=== PATIENT | male | born 1955 | race Caucasian/White ===

== ENCOUNTER 2018-02-16 07:51 | Day surgery (SDC) | payer BC, OTHER, SELFPAY ==
[2018-02-16] VITALS (9 sets, daily range): BP systolic 109–161; BP diastolic 72–104; PULSE 55–117; RESP 14–24; TEMP 35.9–36.4; O2SAT 92–98
--- NOTE | 2018-02-16 | PATH_ITS ---
[facility] Accession Number: [id number] . 01 Material submitted: . RANDOM COLON . 02 Diagnosis: Random, Colon, Biopsies: Colonic mucosa with no diagnostic abnormality. Negative for active or microscopic colitis. Negative for granulomata, dysplasia or malignancy. [facility]/02/19/2018 . 02 Electronically signed: . Ricco Patiño MD, PhD, Pathologist NPI- [id number] . 01 Gross description: . Received in one formalin-filled container, labeled with the patient's name, labeled random colon, are multiple 0.1-0.3 cm portions of tissue, which are filtered, wrapped, and entirely submitted in one cassette. (DC:[id number]) /FRR . 02 Pathologist provided ICD-10: R19.7 . 02 CPT . 390645 Performed at: 01 [facility] [address] [id number] MD aRheem Eric MD Phone: [phone] Performed at: 02 [facility] [address] [place], [place] [id number] MD Jarrett Paige MD Phone: [phone]
--- NOTE | 2018-02-16 08:43 | SUR.PREOP ---
magda draper;ier entries were entered on wrong patient..
[2018-02-16] MEDS: SODIUM CHLORIDE 0.9% 1,000 ML 200 ML IV (08:44)
--- NOTE | 2018-02-16 08:51 | PM.HP.1 ---
History of Present Illness Date Patient Seen: 02/16/18 Time Patient Seen: 08:49 Chief complaint: [id number] Narrative: The patient is a gentleman who had a colonoscopy 7 years ago. He is overdue by 2 years. He has a personal history of polyps. Last exam was 2010. No blood in his stool and no family history of colon cancer. Patient History Medical History History of colonic polyps (Acute) Hypercholesterolemia (Acute) Hypertension (Acute) Encounter for colonoscopy due to history of adenomatous colonic polyps (Acute) Family & Social History Family History: Reviewed 02/16/18 by Richmond Holguin MD Social History: household members spouse Tobacco & Substance use: Does not smoke Meds Home Medications Medication Instructions Recorded Confirmed Type Triglide 160 mg PO DAILY 02/16/18 02/16/18 History aspirin 81 mg PO DAILY 02/16/18 02/16/18 History losartan-hydrochlorothiazide 100 mg PO BID 02/16/18 02/16/18 History metoprolol succinate 100 mg PO BID 02/16/18 02/16/18 History simvastatin 40 mg PO DAILY 02/16/18 02/16/18 History Allergies Allergy/AdvReac Type Severity Reaction Status Date / Time No Known Drug Allergies Allergy Verified 02/16/18 07:19 Review of Systems Review of Systems All systems reviewed & are unremarkable except as noted in HPI and below Cardiovascular Comments: Hypertension. History of a murmur as a child. Exam Vital Signs (past 8 hours): Vital Signs - 8 hr 02/16/18 07:27 02/16/18 08:25 Temperature 97.6 F 96.6 F L Pulse Rate 85 55 L Respiratory Rate 16 16 Blood Pressure 109/76 140/80 H Pulse Oximetry 98 97 Pulse Oximetry 97 Oxygen Delivery Method Room Air Narrative Exam Narrative: Co Operative no apparent distress. Eyes nonicteric. Lungs are clear to auscultation no rales or rhonchi. Heart regular rate and rhythm no murmur gallop. Abdomen is mildly protuberant soft nontender without mass. Patient is alert and oriented x3. Assessment & Plan Plan: Assessment/Plan Narrative: I have discussed the procedure and the rationale with the patient including risks of bleeding, perforation which would necessitate a major operation, failure to find remove all lesions and the potential to tattoo. They appeared to understand and wished to proceed.
--- NOTE | 2018-02-16 08:56 | P.HP_ITS ---
History of Present Illness Date Patient Seen: 02/16/18 Time Patient Seen: 08:49 Chief complaint: [id number] Narrative: The patient is a gentleman who had a colonoscopy 7 years ago. He is overdue by 2 years. He has a personal history of polyps. Last exam was 2010. No blood in his stool and no family history of colon cancer. Patient History Medical History History of colonic polyps (Acute) Hypercholesterolemia (Acute) Hypertension (Acute) Encounter for colonoscopy due to history of adenomatous colonic polyps (Acute) Family & Social History Family History: Reviewed 02/16/18 by Richmond Holguin MD Social History: household members spouse Tobacco & Substance use: Does not smoke Meds Home Medications Medication Instructions Recorded Confirmed Type Triglide 160 mg PO DAILY 02/16/18 02/16/18 History aspirin 81 mg PO DAILY 02/16/18 02/16/18 History losartan-hydrochlorothiazide 100 mg PO BID 02/16/18 02/16/18 History metoprolol succinate 100 mg PO BID 02/16/18 02/16/18 History simvastatin 40 mg PO DAILY 02/16/18 02/16/18 History Allergies Allergy/AdvReac Type Severity Reaction Status Date / Time No Known Drug Allergies Allergy Verified 02/16/18 07:19 Review of Systems Review of Systems All systems reviewed & are unremarkable except as noted in HPI and below Cardiovascular Comments: Hypertension. History of a murmur as a child. Exam Vital Signs (past 8 hours): Vital Signs - 8 hr 3 02/16/18 07:27 02/16/18 08:25 Temperature 97.6 F 96.6 F L Pulse Rate 85 55 L Respiratory Rate 16 16 Blood Pressure 109/76 140/80 H Pulse Oximetry 98 97 Pulse Oximetry 97 Oxygen Delivery Method Room Air Narrative Exam Narrative: Co Operative no apparent distress. Eyes nonicteric. Lungs are clear to auscultation no rales or rhonchi. Heart regular rate and rhythm no murmur gallop. Abdomen is mildly protuberant soft nontender without mass. Patient is alert and oriented x3. Assessment & Plan Plan: Assessment/Plan Narrative: I have discussed the procedure and the rationale with the patient including risks of bleeding, perforation which would necessitate a major operation, failure to find remove all lesions and the potential to tattoo. They appeared to understand and wished to proceed.
--- NOTE | 2018-02-16 08:56 | PM.PREOP ---
Pre-operative Note Interval Note Pre-op Check: History & Physical exam performed today H&P completed within 30 days and has changed as indicated here:: None ASA Class (for procedural sedation): II
[2018-02-16] MEDS: fentaNYL 250 MCG/5 ML INJ IV (09:23)
[2018-02-16] MEDS: MIDAZOLAM 5 MG/5 ML VIAL IV (09:25)
--- NOTE | 2018-02-16 09:27 | PM.OP.ENDO ---
Operative Date/Time/Diagnoses - Date of procedure: 02/16/18 Time of procedure: 09:27 Pre-op diagnosis: History of colonic polyps. Screening examination. Last exam 7 years ago. Post-op diagnosis: same (Sigmoid diverticulosis. Unusual granular pattern to the proximal 2/3 of the colon. Random biopsies taken.) Procedure & Clinicians Study performed: Colonoscopy with cold biopsy Same procedure as scheduled: Yes Indications: Screening. History of polyps. Surgeon: Richmond Holguin Procedure Notes SCOAP/Timeout: Performed Procedure in detail: The patient was placed in the left lateral decubitus position and underwent IV sedation directed by the surgeon consisting of fentanyl and Versed. Digital exam was unremarkable. His prostate is flat and normal in size without masses.. The scope was inserted and advanced through the rectum into the sigmoid, descending, transverse, and ascending colon. The patient had a very unusual mucosal pattern. It was almost granular. The distal portion of the colon was spared. The patient was noted to have numerous sigmoid diverticulosis. There was no evidence of stricture or inflammation.. The cecum was reached identified by the ileocecal valve and the appendiceal opening. The ileocecal valve was successfully cannulated. The terminal ileum was normal in appearance. The scope was gradually brought out. Random biopsies were taken as I egressed. No Polyps were found. The scope ultimately was retroflexed in the rectum. The appearance was[normal in appearance]. The scope was removed and the patient tolerated the procedure well Scope withdrawal time: 12 min Sedation minutes: 25 Findings: diverticulosis Specimen(s): other (Random colon) Complications: none Recommendations: Colonscopy in 5 years (Due to history of colonic polyps) and Other recommendation (Will send letter) Follow up: as needed Disposition: PACU
[2018-02-16] MEDS: ONDANSETRON 4 MG/2 ML INJ IV ×2 (09:42→09:51)
[2018-02-16] MEDS: PROMETHAZINE 12.5 MG in SODIUM CHLORIDE 0.9% 50 ML 202 ML IV (09:49)
== END 2018-02-16 11:05 ==
LOC: ENDO 07:52
PROVIDERS: Visit Provider Specialist
PROC: 0DJD8ZZ Inspection of Lower Intestinal Tract, Via Natural or Artificial Opening Endoscopic (ICD-10-PCS; CPT 45378; principal; 2018-02-16 08:45)
DX: Z12.11 Encounter for screening for malignant neoplasm of colon (principal); Z86.010 Personal history of colon polyps; K57.30 Diverticulosis of large intestine without perforation or abscess without bleeding; I10 Essential (primary) hypertension
CPT/HCPCS: 45380; 99152; 99153; J2250; J2405; J2550; J3010

== ENCOUNTER → 2020-11-09 15:47 | Outpatient (CLI) | payer BC, SELFPAY ==
[2020-11-09 16:32] LABS: COVID19 -Nasal RAPID Negative (Negative)
== END ==
PROVIDERS: PCP Family Medicine; Visit Provider Physician Assistant
DX: Z20.822 Contact with and (suspected) exposure to COVID-19 (principal)
CPT/HCPCS: 87635

== ENCOUNTER → 2020-11-10 10:22 | Outpatient (CLI) | payer BC, OTHER, SELFPAY ==
--- NOTE | 2020-11-10 11:51 | PM.TREADMILL ---
Cardiac Stress Test Report Referral & Results Date Patient Seen: 11/10/20 Time Patient Seen: 11:52 Requesting provider: Sarah Molina Indication: Atherosclerotic heart disease Rest ECG: sinus rhythm with early repolarization Procedure Note: Standard Robert protocol, 9:31, 10.4 METS Good exercise capacity, SINDI -19% Normal hemodynamic response to exercise No chest pain or anginal symptoms No significant ST changes at peak exercise Rare PVC Impression: Normal exercise stress test Please note: Actual ECG tracings can be found in the PACS system.
--- NOTE | 2020-11-11 19:50 | DI.NM.S_ITS ---
DATE OF SERVICE: 11/10/2020 PROCEDURE: Exercise perfusion study. INDICATION: Coronary artery calcification, underlying diabetes mellitus, hypertension, hyperlipidemia. RADIOPHARMACEUTICAL: 27.2 millicurie technetium-99m Myoview IV was injected at stress and 26.7 millicurie technetium-99m Myoview IV was injected at rest. CARDIAC STRESS: The patient underwent exercise perfusion study under the supervision of attending staff. The patient walked on Robert protocol for 9 minutes and 31 seconds, achieved 96 percent of target heart rate and normal blood pressure response. The patient achieved 10.1 METs of workload and functional aerobic impairment -19 percent. Baseline EKG revealed sinus rhythm. During stress, no convincing ischemic changes. Rare PVCs. No anginal symptoms. The patient felt some dyspnea and fatigue. RAW DATA: There is adequate myocardial uptake. There is increased subdiaphragmatic activity. GATED STUDY: Stress and resting supine images revealed a small size, mildly decreased perfusion of inferior wall and inferoapex, which got completely resolved during prone images suggestive of diaphragmatic tissue attenuation artifact. No convincing ischemia or infarction pattern seen. The gated study showed resting LV ejection fraction is 70 percent and stress LV ejection fraction 71 percent. Resting end-diastolic volume 90 mL. TID ratio 0.90, which is within normal limits. Lung/heart ratio 0.54, which is abnormal. CONCLUSION: 1. I will call this study a normal myocardial perfusion study. Excellent exercise tolerance. Functional aerobic impairment -19 percent. Left ventricular function is preserved. 2. In view of abnormal lung/heart ratio, consider 2D echo to rule out any significant diastolic dysfunction or valvular pathology. Travis Young - SAMMIE/demond/madison doc#: [id number]/job#: [id number] dd: 11/11/2020 17:44:00 dt: 11/11/2020 19:33:00 DICTATING MD/COPIES TO: Ike Mcwilliams MD COPIES MNE: SHLOMO;
== END ==
PROVIDERS: PCP Family Medicine; Referring Provider Internal Medicine Cardiovascular Disease; Visit Provider Internal Medicine Cardiovascular Disease
DX: I25.10 Atherosclerotic heart disease of native coronary artery without angina pectoris (principal); E11.9 Type 2 diabetes mellitus without complications; I10 Essential (primary) hypertension; E78.5 Hyperlipidemia, unspecified
CPT/HCPCS: 78452; 93017; A9502

== ENCOUNTER → 2021-03-02 07:41 | Outpatient (CLI) | payer BC, MEDICARE, OTHER, SELFPAY ==
--- NOTE | 2021-03-02 07:53 | DI.ECHO.S_ITS ---
[facility]---------+ [facility] +---------+ : : [address] : : : : [id number] : : : : Phone: [phone]+ Echocardiogram Report + + :Name: GIOVANNY ROSS Study Date: 03/02/2021 Height: 71 in : :[facility] ReadingLocation: Weight: 190 lb : : Gender: Male BSA: 2.1 m2 : :: 1955 Age: 66 yrs BP: 134/83 mmHg: :Reason For Study: DYSPNEA : :Ordering Physician: SAGRARIO, : :FLO Performed By: Sheri Sanabria : :Referring: IFEOMA MOLINA : + + Interpretation Summary 1) Normal left ventricular thickness, size, wall motion, and systolic function (EF 55-60%). 2) Normal right ventricular size and function. 3) No significant valvular abnormalities. 4) Right ventricular systolic pressure is estimated to be 26 mmHg plus the clinically estimated CVP which cannot be estimated on this exam. 5) No prior Echo available for comparison. Procedure: A two-dimensional transthoracic echocardiogram with color flow and Doppler was performed. The study quality was technically adequate. There is no prior echocardiogram noted for this patient. The patient was in sinus bradycardia with heart rates between 50-61 bpm during the exam. Left Ventricle: The left ventricle is normal in size and wall thickness. The ejection fraction is estimated to be 55-60%. Left ventricular systolic function appears normal without focal wall motion abnormalities. Diastolic parameters suggest probable normal left ventricular diastolic function and normal filling pressures. Right Ventricle: The right ventricle is normal in size and function. Atria: Both atria are normal in size. There is no Doppler evidence for an interatrial shunt. Mitral Valve: The mitral valve is normal in structure and function. There is mild mitral regurgitation. Aortic Valve: The aortic valve is trileaflet. The aortic valve opens well. There is no aortic valve stenosis. There is trace aortic regurgitation. Tricuspid Valve: The tricuspid valve is normal in structure and function. There is mild tricuspid regurgitation. Right ventricular systolic pressure is estimated to be 26 mmHg plus the clinically estimated CVP which cannot be estimated on this exam. Pulmonic Valve: The pulmonic valve leaflets are thin and pliable; valve motion is normal. There is trace pulmonic regurgitation. Great Vessels: The aortic root is normal size. The ascending aorta is at the upper limits of normal in size. The inferior vena cava was not well visualized. Pericardium/ Pleura There is no pericardial effusion. There is no pleural effusion. MMode/2D Measurements & Calculations LVIDd: 4.9 cm LVOT diam: 2.2 cm LVIDs: 3.6 cm Ao root diam: 3.4 cm FS: 25.6 % asc Aorta Diam: 3.5 cm EPSS: 0.68 cm Ao Arch Diam (Prox Trans): 3.0 cm IVSd: 1.0 cm LVPWd: 0.79 cm LV wells. diameter/BSA (cm/m^2): 2.4 LV sys. diameter/BSA (cm/m^2): 1.8 LA A2 area: 18.9 cm2 RA long axis: 5.0 cm LA A4 area: 18.2 cm2 RA area: 16.2 cm2 LA length (vol): 5.3 cm RA vol: 44.9 ml LA vol: 54.5 ml RA : 21.8 ml/m2 LA vol index: 26.4 ml/m2 IVC diam: 1.3 cm RVD1 (basal): 3.3 cm TAPSE: 1.9 cm Doppler Measurements & Calculations Ao V2 max: 135.9 cm/sec LVOT Max Kavon: 86.8 cm/sec Ao V2 mean: 92.3 cm/sec LV V1 max P.0 mmHg Ao max P.4 mmHg LV V1 VTI: 19.9 cm Ao mean P.8 mmHg JONATHAN(I,D): 2.6 cm2 Ao V2 VTI: 27.7 cm JONATHAN(V,D): 2.3 cm2 sev ratio: 0.72 JONATHAN indexed to BSA (cm^2/m^2): 1.3 MV E max kavon: 64.7 cm/sec TR max kavon: 255.0 cm/sec MV A max kavon: 45.3 cm/sec TR max P.0 mmHg MV E/A: 1.4 PA V2 max: 107.3 cm/sec Med Peak E' Kavon: 9.1 cm/sec PA V2 mean: 71.9 cm/sec E/E' med: 7.1 PA mean P.3 mmHg Lat Peak E' Kavon: 10.1 cm/sec PA pr(Accel): 17.3 mmHg E/E' lat: 6.4 E/e' average: 6.7 MV dec time: 0.21 sec SVLVOT): 72.3 ml Reading Physician:01:31 PM
== END ==
PROVIDERS: PCP Family Medicine; Referring Provider Internal Medicine Cardiovascular Disease; Visit Provider Internal Medicine Cardiovascular Disease
DX: I08.1 Rheumatic disorders of both mitral and tricuspid valves (principal); R06.00 Dyspnea, unspecified
CPT/HCPCS: 93306

== ENCOUNTER 2023-11-03 14:02 | Day surgery (SDC) | payer MEDICARE, OTHER, SELFPAY ==
--- NOTE | 2023-11-03 | PATH_ITS ---
[facility] Accession Number: [id number] No. of containers..02 Tissue . 01 Material submitted: . PART A: colon - TRANSVERSE COLON POLYP PART B: rectum - RECTAL POLYP . 01 Diagnosis: TRANSVERSE COLON POLYP: Tubular adenoma. . RECTAL POLYP: Tubular adenoma. HEF 11/08/2023 1153 Local . 01 Electronically signed: . Shabana Mazariegos MD, Pathologist NPI- [id number] . 01 Gross description: . Part A: TRANSVERSE COLON POLYP: Received in formalin are 2 fragment(s) of rodriguez, soft tissue measuring 0.1 x 0.1 x 0.1 cm to 0.3 x 0.3 x 0.2 cm submitted entirely in 1 cassette(s) . Part B: RECTAL POLYP: Received in formalin is 1 fragment(s) of rdoriguez, soft tissue measuring 0.3 x 0.3 x 0.3 cm submitted entirely in 1 cassette(s) /JEANNETTE 11/08/2023 1153 Local . 01 Pathologist provided ICD-10: D12.3, D12.8 . 01 CPT . 151116, 511080 Specimen Comment: A courtesy copy of this report has been sent to [phone] Performed at: 01 [facility] [address] [place] [address], [place], [place] [id number] MD Raheem Eric MD Phone: [phone]
[2023-11-03 14:26] VITALS: BP 140/78; PULSE 67; RESP 16; TEMP 36.4; O2SAT 97
[2023-11-03] MEDS: LACTATED RINGERS 1,000 ML 42 ML IV (14:39)
--- NOTE | 2023-11-03 15:00 | P.HP_ITS ---
History of Present Illness History of Present Illness Date Patient Seen: 11/03/23 Time Patient Seen: 15:01 Chief complaint: Colonoscopy Narrative: Shabbir is a 68-year-old man here for screening colonoscopy. Family history of colon cancer his brother recently passed from such. He is personal history of colonic polyps last colonoscopy 5 years ago. No acute abdominal concerns. [facility] Medical History Encounter for colonoscopy due to history of adenomatous colonic polyps History of colonic polyps Hypercholesterolemia Hypertension Family History Other Cancer Social History household members: spouse Smoking Status: Former smoker Meds Home Medications and Allergies Home Medications Medication Instructions Recorded Confirmed Type aspirin 81 mg PO DAILY 02/16/18 11/03/23 History losartan-hydrochlorothiazide 100 mg PO BID 02/16/18 11/03/23 History metoprolol succinate 100 mg PO BID 02/16/18 11/03/23 History metformin 500 mg tablet 500 mg PO BID 10/11/23 11/03/23 History rosuvastatin 40 mg tablet 40 mg PO DAILY 11/03/23 11/03/23 History Allergies Allergy/AdvReac Type Severity Reaction Status Date / Time No Known Drug Allergies Allergy Verified 11/03/23 14:17 Exam Vital Signs (past 8 hours): - 11/03/23 14:26 Temperature 97.6 F Pulse Rate 67 Respiratory Rate 16 Blood Pressure 140/78 Pulse Oximetry 97 Oxygen Delivery Method Room Air Oxygen Delivery Method Room Air Narrative Exam Narrative: General adult man alert oriented no acute distress Chest nonlabored respiration Extremities warm well perfused Assessment & Plan Assessment & Plan narrative: The patient requires colorectal screening and colonoscopy is recommended. Technical details were discussed. Risks, benefits, alternatives explained. Ri sks including but not limited to myocardial infarction, aspiration, bleeding, pain, missed lesion, incomplete examination, need for further radiographic studies, colonic perforation, and need for major abdominal surgery were discussed. All questions were answered to their satisfaction, and they are in agreement with this plan.
--- NOTE | 2023-11-03 16:02 | P.OP.COLON_ITS ---
Operative Date/Time/Diagnoses Date of procedure: 11/03/23 Time of procedure: 16:02 Pre-op diagnosis: Personal history of colonic polyps Procedure & Clinicians Study performed: Colonoscopy and polypectomy Same procedure as scheduled: Yes Indications: Family history of colon cancer history of colonic polyps Colorectal screening Surgeon: Arjun Ivory Procedure Notes Procedure in detail: The history and physical was performed/updated and the patient is ASA class is 2. The procedure was discussed in detail with the patient. Potential risks complications including infection, bleeding, missed diagnosis, perforation, need for surgery, and were explained. Their questions were answered and informed consent was obtained. Patient was brought to the procedure room and placed standard monitoring equipment. The patient's vital signs were monitored continuously throughout the entire procedure. Prior to starting time-out was performed. The patient was placed in the left lateral recumbent position. Procedural sedation was administered by anesthesia. Examination began with a thorough inspection of the perianal area there was no evidence of fissures, fistulae, external hemorrhoids or cutaneous malignancy. The colonoscopy scope was then placed into the anal canal and was advanced to the cecum, which was identified by the ileocecal valve, the appendiceal orifice and the confluence of the taenia. The scope was then slowly withdrawn examining colon thoroughly in all directions, irrigating it of any residual stool. The scope was retroflexed within the rectum The patient tolerated the procedure well. They will be discharged once criteria are met. The prep was of good/excellent quality. The withdrawl time was 12 minutes. FINDINGS * Transverse colon-3 mm polyp removed in entirety with cold snare * Rectum 3-5 mm polyp removed with cold snare Specimen(s): other (Rectal and transverse colonic polyps) Impression: Colonic polyps x2 Post-procedure Plan for aftercare: Follow-up is dependent on pathology findings likely 5 years Disposition: same day surgery
[2023-11-03 16:03] VITALS: BP 130/88; PULSE 80; RESP 24; TEMP 36.2; O2SAT 94
[2023-11-03 16:08] VITALS: BP 115/81; PULSE 80; RESP 19; O2SAT 93
[2023-11-03 16:13] VITALS: BP 123/85; PULSE 74; RESP 18; TEMP 36.3; O2SAT 96
[2023-11-03 16:18] VITALS: BP 128/86; PULSE 75; RESP 17; O2SAT 93
== END 2023-11-03 16:25 | disposition home or self-care (01) ==
PROVIDERS: Surgery; PCP Family Medicine; Referring Provider Surgery; Visit Provider Surgery
PROC: 0DJD8ZZ Inspection of Lower Intestinal Tract, Via Natural or Artificial Opening Endoscopic (ICD-10-PCS; CPT 45378; principal; 2023-11-03 15:00)
DX: Z12.11 Encounter for screening for malignant neoplasm of colon (principal); D12.3 Benign neoplasm of transverse colon; D12.8 Benign neoplasm of rectum
CPT/HCPCS: 45385; J2704